=== PATIENT | female | born 1960 ===

== ENCOUNTER 2021-09-19 09:56 | Inpatient (IN) | payer OTHER ==
[~2021-09-19] VITALS: Ht 162.6 cm; Wt 54.4 kg
[2021-09-19] MEDS ORDERED: ATORVASTATIN CA10 MG PO (10:05)
[2021-09-19] MEDS ORDERED: ORENCIA50 MG/0.4 SQ (10:05)
[2021-09-19] MEDS ORDERED: ARAVA10 MG PO (10:05)
[2021-09-19] MEDS ORDERED: BAYER CHILDREN'81 MG PO (10:05)
[2021-09-19] MEDS ORDERED: HYDROXYCHLOROQ100 MG PO (10:06)
[2021-09-20] MEDS ORDERED: IBANDRONATE SO150 MG (08:10)
[2021-09-20] MEDS ORDERED: AMPHETAMINE SAL30 MG (08:11)
[2021-09-20] MEDS ORDERED: DIAZEPAM10 MG (08:11)
[2021-09-20] MEDS ORDERED: FOLIC ACID1 MG (08:11)
== END 2021-09-20 21:07 | disposition left against medical advice (07) | DRG 69 ==
LOC: ER 09:56 → MEDJ 15:55
PROVIDERS: ADMIT Internal Medicine; ATTEND Internal Medicine
PROC: B24BZZZ Ultrasonography of Heart with Aorta (ICD-10-PCS; principal; 2021-09-19)
PROC: BW28ZZZ Computerized Tomography (CT Scan) of Head (ICD-10-PCS; 2021-09-19)
PROC: 4A12X4Z Monitoring of Cardiac Electrical Activity, External Approach (ICD-10-PCS; 2021-09-19)
PROC: BW38ZZZ Magnetic Resonance Imaging (MRI) of Head (ICD-10-PCS; 2021-09-20)
DX: G45.8 Other transient cerebral ischemic attacks and related syndromes (principal); U07.1 COVID-19; G04.89 Other myelitis; G81.91 Hemiplegia, unspecified affecting right dominant side; E78.49 Other hyperlipidemia; M32.9 Systemic lupus erythematosus, unspecified; M06.8A Other specified rheumatoid arthritis, other specified site; I10 Essential (primary) hypertension
CPT/HCPCS: 70544